=== PATIENT | male | born 1985 | race Asian ===

== ENCOUNTER 2023-03-17 02:52 | Emergency (ER) | payer SELFPAY ==
[2023-03-17] MEDS ORDERED: Ketorolac Tromethamine 30 MG/ML VIAL ONE (04:35)
[2023-03-17] MEDS ORDERED: Cyclobenzaprine 10 MG TAB ONE (04:35)
== END 2023-03-17 05:36 | disposition home or self-care (01) ==
LOC: CSHERS 02:52
DX: M54.16 Radiculopathy, lumbar region (principal); M62.830 Muscle spasm of back; F17.210 Nicotine dependence, cigarettes, uncomplicated
CPT/HCPCS: 72131; 96372; J1885